=== PATIENT | male | born 1950 | race Caucasian/White ===

== ENCOUNTER 2019-11-27 13:38 | Emergency (ER) | payer MEDICARE ==
[~2019-11-27] VITALS: Ht 182.9 cm; Wt 73.8 kg
[~2019-11-27 13:38] MED LIST: DAPA10TA PO; INSULIN; LINA5TAB PO; LOSA50TA14 PO; MIGL25TA PO; MINO100C61 PO; MULT-658 PO; SERT25TA3 PO
--- NOTE | 2019-11-27 14:10 | NUR ---
THIS IS A 69 YO M W/ C/O FALLING ONTO METAL FENCE W/ PUNCTURE WOUNDS TO BUTTOCKS. UPON ENTRY INTO ROOM, PT NOW ALSO HAS C/O BLOOD COMING FROM PENIS. UPDATED. PT RESTING ON GURNEY W/ CALL LIGHT IN REACH AND SIDE RAILS UPX2. RESP EVEN AND UNLABORED, NADN. ANALISA ALFREDO TO UPDATE ORDERS.
[2019-11-27] MEDS ORDERED: LIDOCAINE-MPF 1%, 5ML INFIL ONE (14:30)
[2019-11-27] MEDS ORDERED: DIPH,PERTUSS(ACELL),TET VAC/PF 0.5 ML IM-VACC ONE ×2 (14:30→15:05)
[2019-11-27] MEDS ORDERED: SODIUM CHLORIDE FLUSH 10ML SYR IVF ONE (14:30)
[2019-11-27 14:59] LABS: ALANINE AMINOTRANSFERASE 29 U/L (12-78); ALBUMIN 4.1 g/dL (3.4-5.0); ANION GAP 14 mmol/L (5-15); CALCIUM 9.4 mg/dL (8.5-10.1); CHLORIDE 100 mmol/L (98-107); CREATININE 0.89 mg/dL (0.7-1.3)
[2019-11-27 15:01] LABS: ALKALINE PHOSPHATASE 110 U/L (45-117); BILIRUBIN,TOTAL 0.7 mg/dL (0.2-1.0); TOTAL PROTEIN 7.2 g/dL (6.4-8.2)
[2019-11-27 15:07] LABS: BASOPHILS % (AUTO) 1 % (0-1); EOSINOPHILS % (AUTO) 5 % (1-7); LYMPHOCYTES % (AUTO) 14 % (22-44); MEAN CORPUSCULAR HEMOGLOBIN 33.2 pg (27.5-34.5); MEAN CORPUSCULAR HGB CONC 33.8 g/dL (33.2-36.2); MEAN PLATELET VOLUME 9.2 fL (7.4-10.4); MONOCYTES % (AUTO) 9 % (2-9); NEUTROPHILS % (AUTO) 72 % (42-75); PLATELET COUNT 222 x10^3/uL (130-400); RED BLOOD COUNT 4.39 x10^6/uL (4.38-5.82); RED CELL DISTRIBUTION WIDTH 12.8 % (9.4-14.8)
[2019-11-27 15:11] LABS: MD NO
--- NOTE | 2019-11-27 15:11 | NUR ---
PT TO CT.
--- NOTE | 2019-11-27 15:25 | NUR ---
PT EDUCATED ON NEED FOR URINE SAMPLE.
[2019-11-27] MEDS ORDERED: CEFTRIAXONE 1,000 MG in SODIUM CHLORIDE 0.9% 50 ML IVPB ONE (15:30)
[2019-11-27] MEDS ORDERED: METRONIDAZOLE PMX 500MG/100ML 100 ML IVPB ONE (15:30)
[2019-11-27] MEDS ORDERED: OMNIPAQUE 350 MG/ML, 100ML BOTTLE ONE (15:31)
--- NOTE | 2019-11-27 15:33 | NUR ---
PT ONLY ABLE TO PRODUCE SMALL AMOUNT OF URINE FOR SAMPLE. BRIGHT RED AND BLOODY, SPECIMEN WALKED TO LAB.
[2019-11-27] MEDS ORDERED: CEFTRIAXONE PMX 1GM/50ML 50 ML ONE (15:34)
[2019-11-27] MEDS ORDERED: METRONIDAZOLE PMX 500MG/100ML 100 ML ONE (15:34)
[2019-11-27] MEDS ORDERED: MORPHINE SULFATE 4 MG/ML, 1ML ONE (15:43)
[2019-11-27] MEDS ORDERED: ONDANSETRON 2MG/ML, 2ML ONE (15:43)
--- NOTE | 2019-11-27 15:51 | NUR ---
PTS IRENE [phone] OK TO GIVE UPDATES PER PT.
[2019-11-27] MEDS ORDERED: MORPHINE SULFATE 4 MG/ML, 1ML IVPush PRN (16:00)
[2019-11-27] MEDS ORDERED: ONDANSETRON 2MG/ML, 2ML IVPush ONE (16:00)
[2019-11-27 16:10] LABS: MICROSCOPIC INDICATED
--- NOTE | 2019-11-27 16:26 | NUR ---
REPORT GIVEN TO [facility]. PT READY FOR TRANSPORT.
--- NOTE | 2019-11-27 16:38 | NUR ---
RAPID COVID ORDER PLACED, SAMPLE OBTAINED BY , WALKED TO LAB.
--- NOTE | 2019-11-27 16:49 | NUR ---
PT AND FAMILY UPDATED REGARDING TRANSPORT TIME 1700.
--- NOTE | 2019-11-27 17:41 | NUR ---
PT RESTING ON GURNEY W/ CALL LIGHT IN REACH AND FAMILY AT BEDSIDE. RESP EVEN AND UNLABORED, [place].
[2019-11-27 17:51] VITALS: BP 124/69
== END 2019-11-27 19:20 | disposition short-term general hospital (02) ==
LOC: ED 14:25
DX: S31.822A Laceration with foreign body of left buttock, initial encounter (principal); S30.850A Superficial foreign body of lower back and pelvis, initial encounter; S37.30XA Unspecified injury of urethra, initial encounter; Z11.59 Encounter for screening for other viral diseases; W22.8XXA Striking against or struck by other objects, initial encounter; Y93.89 Activity, other specified; Y92.009 Unspecified place in unspecified non-institutional (private) residence as the place of occurrence of the external cause; Y99.8 Other external cause status
CPT/HCPCS: 36415; 74177; 80053; 81001; 85025; 87635; 90471; 90715; 96365; 96366; 96367; 96375; 99285; J0696; J2270; J2405; Q9967

== ENCOUNTER 2020-10-20 13:23 | Outpatient (CLI) | payer MEDICARE ==
[~2020-10-20 13:23] MED LIST changes: +SERT-331 PO; -SERT25TA3 PO
[2020-10-20] MEDS ORDERED: CALC-534 PO (14:08)
[2020-10-20] MEDS ORDERED: METO25TA35 PO (14:08)
[2020-10-20] MEDS ORDERED: ASPI81TA45 PO (14:08)
[2020-10-20] MEDS ORDERED: STRONIUM PO (14:08)
[2020-10-20] MEDS ORDERED: DENO60DI SC (14:08)
[2020-10-20] MEDS ORDERED: INSU100I32 SC (14:08)
[2020-10-20] MEDS ORDERED: FLUT16SP24 NAS (14:08)
[2020-10-20] MEDS ORDERED: ALPHA LIPOIC ACID PO (14:08)
[2020-10-20] MEDS ORDERED: BENF150C PO (14:08)
[2020-10-20] MEDS ORDERED: TESTOSTERONE SC (14:24)
[2020-10-20 14:43] LABS: BASOPHILS % (AUTO) 1 % (0-1); EOSINOPHILS % (AUTO) 5 % (1-7); LYMPHOCYTES % (AUTO) 13 % (22-44); MEAN CORPUSCULAR HEMOGLOBIN 32.6 pg (27.5-34.5); MEAN CORPUSCULAR HGB CONC 33.9 g/dL (33.2-36.2); MEAN PLATELET VOLUME 8.6 fL (7.4-10.4); MONOCYTES % (AUTO) 10 % (2-9); NEUTROPHILS % (AUTO) 71 % (42-75); PLATELET COUNT 205 x10^3/uL (130-400); RED BLOOD COUNT 4.34 x10^6/uL (4.38-5.82)
[2020-10-20 14:55] LABS: CHLORIDE 100 mmol/L (98-107)
[2020-10-20 15:02] LABS: ALANINE AMINOTRANSFERASE 22 U/L (12-78); ALBUMIN 3.7 g/dL (3.4-5.0); ALKALINE PHOSPHATASE 98 U/L (45-117); ANION GAP 9 mmol/L (5-15); BILIRUBIN,TOTAL 0.7 mg/dL (0.2-1.0); CALCIUM 9.1 mg/dL (8.5-10.1); TOTAL PROTEIN 7.2 g/dL (6.4-8.2)
== END 2020-10-20 23:59 | disposition home or self-care (01) ==
LOC: STAR 13:23
PROVIDERS: ATTEND Urology
DX: Z01.818 Encounter for other preprocedural examination (principal); N35.919 Unspecified urethral stricture, male, unspecified site; I44.4 Left anterior fascicular block
CPT/HCPCS: 36415; 80053; 85025; 93005

== ENCOUNTER 2020-10-27 10:55 | Day surgery (SDC) | payer MEDICARE ==
[~2020-10-27] VITALS: Ht 182.9 cm; Wt 75.8 kg
[2020-10-27 11:36] VITALS: BP 154/85
== END 2020-10-27 18:45 | disposition home or self-care (01) ==
LOC: OUT 10:55
PROVIDERS: ATTEND Urology
DX: N35.011 Post-traumatic bulbous urethral stricture (principal); N39.0 Urinary tract infection, site not specified; I10 Essential (primary) hypertension; E10.9 Type 1 diabetes mellitus without complications; Z20.822 Contact with and (suspected) exposure to COVID-19; Z79.4 Long term (current) use of insulin; Z79.899 Other long term (current) drug therapy